=== PATIENT | male | born 1980 | race Hispanic/Latino ===

== ENCOUNTER 2023-07-01 00:01 | Inpatient (IN) | payer OTHER ==
[~2023-07-01] VITALS: Ht 170.2 cm; Wt 77.0 kg
[2023-07-01] MEDS ORDERED: 0.9%NACL 1000ML 1,000 ML IV ONE (01:00)
[2023-07-01 01:15] LABS: BASOPHILS # (AUTO) 0.05 K/uL (0.00-0.20); EOSINOPHILS # (AUTO) 0.11 K/uL (0.00-0.70); EOSINOPHILS % (AUTO) 2.2 % (0.0-8.0); HEMATOCRIT 43.4 % (42-54); IMMATURE GRANULOCYTE ABSOLUTE 0.01 K/uL (0-1); LYMPHOCYTES # (AUTO) 0.9 K/uL (1.0-4.8); LYMPHOCYTES % (AUTO) 18.2 % (21.0-51.0); MEAN CORPUSCULAR HEMOGLOBIN 30.9 pg (27.0-33.0); MEAN CORPUSCULAR HGB CONC 34.6 g/dL (32.0-36.0); MEAN CORPUSCULAR VOLUME 89.5 fL (79-99); MONOCYTES # (AUTO) 0.6 K/uL (0.1-1.0); MONOCYTES % (AUTO) 11.1 % (3.0-13.0); NEUTROPHILS # (AUTO) 3.4 K/uL (1.8-7.7); NEUTROPHILS % (AUTO) 67.3 % (40.0-77.0); PLATELET COUNT (AUTO) 108 K/uL (130-400); RED BLOOD CELL COUNT(AUTO) 4.85 MIL/uL (4.50-6.20); RED CELL DISTRIBUTION WIDTH 13.1 % (11.0-15.5); WHITE BLOOD COUNT (AUTO) 5.1 K/uL (4.8-10.8)
[2023-07-01 01:29] LABS: CREATININE 0.7 mg/dL (0.5-1.5); POTASSIUM 3.4 mmol/L (3.5-5.1)
[2023-07-01 01:42] LABS: APPEARANCE,URINE CLOUDY (CLEAR); BILIRUBIN,URINE NEGATIVE (NEGATIVE); COLOR,URINE DARK-BROWN (YELLOW); GLUCOSE, URINE (UA) NEGATIVE (NEGATIVE); KETONES,URINE NEGATIVE (NEGATIVE); NITRATE,URINE NEGATIVE (NEGATIVE); OCCULT BLOOD,URINE LARGE (NEGATIVE); PROTEIN,URINE 100 mg/dL (NEGATIVE); UROBILINOGEN,URINE 3 mg/dL (0.2-1.0)
[2023-07-01 01:44] LABS: ADD UA MICROSCOPIC YES; LEUKOCYTE ESTERASE ,URINE NEGATIVE Leu/uL (NEGATIVE)
[2023-07-01 01:45] LABS: MUCUS,URINE RARE LPF (None Seen); RBC,URINE TNTC /HPF (0-1)
[2023-07-01] MEDS ORDERED: MORPHINE 2 MG SYG IV PRN (04:30)
[2023-07-01] MEDS ORDERED: MORPHINE 4 MG SYG IV PRN (04:30)
[2023-07-01] MEDS ORDERED: ONDANSETRON 4MG INJ IV PRN (04:30)
[2023-07-01] MEDS ORDERED: POTASSIUM CHLORIDE 20MEQ/100ML 100 ML IV PRN (04:30)
[2023-07-01] MEDS ORDERED: ACETAMINOPHEN 325 MG TAB PO PRN ×2 (04:30)
[2023-07-01] MEDS ORDERED: POTASSIUM CHLORIDE 10% ELIXIR 20 MEQ/15 ML UDCUP PO PRN (04:30)
[2023-07-01 05:15] LABS: INR 1.1 (0.85-1.15); PROTHROMBIN TIME 12.7 SEC (9.6-11.6)
[2023-07-01 05:16] LABS: PARTIAL THROMBOPLASTIN TIME 29.1 SEC (26.3-35.5)
[2023-07-01 05:21] LABS: ALBUMIN 3.6 g/dL (3.5-5.0); BILIRUBIN,TOTAL 1.9 mg/dL (0.2-1.0); MAGNESIUM 1.8 mg/dL (1.80-2.40); PHOSPHORUS 4.2 mg/dL (2.5-4.9); TOTAL PROTEIN, SERUM 7.6 g/dL (6.0-8.3)
[2023-07-01 05:25] VITALS: BP 128/73; PULSE 72; RESP 20
[2023-07-01 08:05] VITALS: BP 124/78; PULSE 77; RESP 16
[2023-07-01] MEDS: FAMOTIDINE 20MG TAB PO SCH ×2 (08:19→22:15)
[2023-07-01] MEDS: KCL 20 MEQ ERTAB PO PRN ×2 (08:19→12:16)
[2023-07-01] MEDS: MAGNESIUM 2GM PREMIX 50ML 50 ML IV PRN (08:20)
[2023-07-01 11:52] VITALS: BP 156/80; PULSE 71; RESP 20
[2023-07-01 16:26] VITALS: BP 146/80; PULSE 76; RESP 16
[2023-07-01] MEDS ORDERED: IOHEXOL-350 75 ML VIAL IV ONE (16:57)
[2023-07-01] MEDS ORDERED: IOHEXOL 350 MG/ML 100ML INFUS..BTL IV ONE (17:02)
[2023-07-01 19:19] VITALS: BP 132/80; PULSE 71; RESP 20
[2023-07-01 23:15] VITALS: BP 129/69; PULSE 81; RESP 18
[2023-07-02] VITALS (7 sets, daily range): BP systolic 109–151; BP diastolic 71–85; PULSE 71–84; RESP 18–19; O2SAT 97–98
[2023-07-02 05:29] LABS: BASOPHILS # (AUTO) 0.04 K/uL (0.00-0.20); BASOPHILS % (AUTO) 1.1 % (0.0-5.0); EOSINOPHILS % (AUTO) 5.4 % (0.0-8.0); HEMATOCRIT 41.8 % (42-54); IMMATURE GRANULOCYTE ABSOLUTE 0.01 K/uL (0-1); LYMPHOCYTES # (AUTO) 0.9 K/uL (1.0-4.8); LYMPHOCYTES % (AUTO) 24.8 % (21.0-51.0); MEAN CORPUSCULAR HEMOGLOBIN 30.3 pg (27.0-33.0); MEAN CORPUSCULAR HGB CONC 33.3 g/dL (32.0-36.0); MEAN CORPUSCULAR VOLUME 91.1 fL (79-99); MONOCYTES # (AUTO) 0.4 K/uL (0.1-1.0); MONOCYTES % (AUTO) 10.9 % (3.0-13.0); NEUTROPHILS # (AUTO) 2.1 K/uL (1.8-7.7); NEUTROPHILS % (AUTO) 57.5 % (40.0-77.0); PLATELET COUNT (AUTO) 105 K/uL (130-400); RED BLOOD CELL COUNT(AUTO) 4.59 MIL/uL (4.50-6.20); RED CELL DISTRIBUTION WIDTH 13.2 % (11.0-15.5); WHITE BLOOD COUNT (AUTO) 3.7 K/uL (4.8-10.8)
[2023-07-02 05:40] LABS: CREATININE 0.6 mg/dL (0.5-1.5); MAGNESIUM 1.7 mg/dL (1.80-2.40); PHOSPHORUS 3.9 mg/dL (2.5-4.9); POTASSIUM 3.7 mmol/L (3.5-5.1)
[2023-07-02] MEDS: FAMOTIDINE 20MG TAB PO SCH ×2 (09:02→21:50)
[2023-07-02] MEDS: MAGNESIUM 2GM PREMIX 50ML 50 ML IV PRN (17:42)
[2023-07-03] VITALS (8 sets, daily range): BP systolic 115–145; BP diastolic 74–88; PULSE 68–80; RESP 18–19; O2SAT 98–99
[2023-07-03] MEDS: FAMOTIDINE 20MG TAB PO SCH ×2 (08:39→21:04)
[2023-07-04] VITALS (7 sets, daily range): BP systolic 121–142; BP diastolic 80–86; PULSE 62–68; RESP 17–18; O2SAT 97–98
[2023-07-04] MEDS: FAMOTIDINE 20MG TAB PO SCH ×2 (08:32→20:22)
[2023-07-05] VITALS (13 sets, daily range): BP systolic 111–161; BP diastolic 70–89; PULSE 65–80; RESP 17–18; O2SAT 93
[2023-07-05 05:30] LABS: BASOPHILS # (AUTO) 0.05 K/uL (0.00-0.20); BASOPHILS % (AUTO) 1.1 % (0.0-5.0); EOSINOPHILS # (AUTO) 0.22 K/uL (0.00-0.70); EOSINOPHILS % (AUTO) 4.9 % (0.0-8.0); HEMATOCRIT 42.9 % (42-54); IMMATURE GRANULOCYTE ABSOLUTE 0.01 K/uL (0-1); LYMPHOCYTES # (AUTO) 1.1 K/uL (1.0-4.8); LYMPHOCYTES % (AUTO) 24.4 % (21.0-51.0); MEAN CORPUSCULAR HEMOGLOBIN 30.5 pg (27.0-33.0); MEAN CORPUSCULAR HGB CONC 33.3 g/dL (32.0-36.0); MEAN CORPUSCULAR VOLUME 91.5 fL (79-99); MONOCYTES # (AUTO) 0.5 K/uL (0.1-1.0); MONOCYTES % (AUTO) 11.6 % (3.0-13.0); NEUTROPHILS # (AUTO) 2.6 K/uL (1.8-7.7); NEUTROPHILS % (AUTO) 57.8 % (40.0-77.0); PLATELET COUNT (AUTO) 116 K/uL (130-400); RED BLOOD CELL COUNT(AUTO) 4.69 MIL/uL (4.50-6.20); RED CELL DISTRIBUTION WIDTH 13.1 % (11.0-15.5); WHITE BLOOD COUNT (AUTO) 4.5 K/uL (4.8-10.8)
[2023-07-05 05:38] LABS: INR 1.07 (0.85-1.15); PROTHROMBIN TIME 12.4 SEC (9.6-11.6)
[2023-07-05 05:40] LABS: PARTIAL THROMBOPLASTIN TIME 29.7 SEC (26.3-35.5)
[2023-07-05 05:48] LABS: CREATININE 0.6 mg/dL (0.5-1.5); MAGNESIUM 1.7 mg/dL (1.80-2.40); PHOSPHORUS 4.5 mg/dL (2.5-4.9); POTASSIUM 3.7 mmol/L (3.5-5.1)
[2023-07-05] MEDS: MAGNESIUM 2GM PREMIX 50ML 50 ML IV PRN (06:05)
[2023-07-05] MEDS: FAMOTIDINE 20MG TAB PO SCH (09:00)
[2023-07-05] MEDS ORDERED: MIDAZOLAM HCL 1 MG/ML 2ML VIAL ONE (12:49)
[2023-07-05] MEDS ORDERED: FENTANYL CITRATE PF 50 MCG/1 ML 2ML VIAL ONE (12:49)
== END 2023-07-05 19:15 | disposition home or self-care (01) | DRG 688 ==
LOC: EDH 00:01 → EDHIP 00:02 → 3AH 05:25
PROVIDERS: ADMIT Internal Medicine; ATTEND Internal Medicine
PROC: 0TB03ZX Excision of Right Kidney, Percutaneous Approach, Diagnostic (ICD-10-PCS; principal; 2023-07-05)
DX: C64.9 Malignant neoplasm of unspecified kidney, except renal pelvis (principal); E87.6 Hypokalemia; R91.1 Solitary pulmonary nodule; K74.60 Unspecified cirrhosis of liver; Z90.49 Acquired absence of other specified parts of digestive tract; Z87.891 Personal history of nicotine dependence
CPT/HCPCS: 36415; 50200; 71270; 74176; 74178; 76770; 76942; 78306; 80048; 80053; 81001; 82306; 83735; 84100; 84153; 84207; 85025; 85610; 85730; 93975; 99151; 99153; A9503; G0378; J2250; J3010; J3475; Q9967; C2615

== ENCOUNTER 2023-08-23 00:19 | Emergency (ER) | payer MEDICAID, OTHER ==
[~2023-08-23] VITALS: Ht 170.2 cm; Wt 78.0 kg
[2023-08-23 00:45] LABS: BASOPHILS # (AUTO) 0.03 K/uL (0.00-0.20); BASOPHILS % (AUTO) 0.6 % (0.0-5.0); EOSINOPHILS # (AUTO) 0.16 K/uL (0.00-0.70); EOSINOPHILS % (AUTO) 3.5 % (0.0-8.0); HEMATOCRIT 41.2 % (42-54); LYMPHOCYTES # (AUTO) 0.9 K/uL (1.0-4.8); LYMPHOCYTES % (AUTO) 19.9 % (21.0-51.0); MEAN CORPUSCULAR HEMOGLOBIN 30.5 pg (27.0-33.0); MEAN CORPUSCULAR HGB CONC 34.7 g/dL (32.0-36.0); MEAN CORPUSCULAR VOLUME 87.8 fL (79-99); MONOCYTES # (AUTO) 0.6 K/uL (0.1-1.0); NEUTROPHILS # (AUTO) 2.9 K/uL (1.8-7.7); PLATELET COUNT (AUTO) 114 K/uL (130-400); RED BLOOD CELL COUNT(AUTO) 4.69 MIL/uL (4.50-6.20); RED CELL DISTRIBUTION WIDTH 13.4 % (11.0-15.5); WHITE BLOOD COUNT (AUTO) 4.6 K/uL (4.8-10.8)
[2023-08-23 00:54] LABS: CREATININE 0.8 mg/dL (0.5-1.5); POTASSIUM 3.6 mmol/L (3.5-5.1)
[2023-08-23 00:59] LABS: ALBUMIN 3.5 g/dL (3.5-5.0); BILIRUBIN,TOTAL 1.1 mg/dL (0.2-1.0); TOTAL PROTEIN, SERUM 7.7 g/dL (6.0-8.3)
[2023-08-23] MEDS ORDERED: MORPHINE 2 MG SYG ONE (01:26)
[2023-08-23 01:39] LABS: APPEARANCE,URINE TURBID (CLEAR); BILIRUBIN,URINE NEGATIVE (NEGATIVE); COLOR,URINE RED (YELLOW); GLUCOSE, URINE (UA) NEGATIVE (NEGATIVE); KETONES,URINE NEGATIVE (NEGATIVE); LEUKOCYTE ESTERASE ,URINE 25 Leu/uL (NEGATIVE); NITRATE,URINE NEGATIVE (NEGATIVE); OCCULT BLOOD,URINE LARGE (NEGATIVE); PH,URINE 7.5 (5.0-8.0); PROTEIN,URINE 300 mg/dL (NEGATIVE); UROBILINOGEN,URINE 0.2 mg/dL (0.2-1.0)
[2023-08-23 01:40] LABS: ADD UA MICROSCOPIC YES
[2023-08-23 01:43] LABS: RBC,URINE TNTC /HPF (0-1)
[2023-08-23] MEDS ORDERED: MORPHINE 2 MG SYG IVP ONE (02:00)
[2023-08-23 02:29] VITALS: BP 146/83; PULSE 87; RESP 16; O2SAT 99
[2023-09-14] MEDS ORDERED: CEPH500C2 PO (12:00)
[2023-09-15] MEDS ORDERED: ACET-2079 PO (14:58)
== END 2023-08-23 02:41 | disposition home or self-care (01) ==
LOC: EDH 00:19
DX: N28.89 Other specified disorders of kidney and ureter (principal); R33.9 Retention of urine, unspecified; R31.9 Hematuria, unspecified; Z90.49 Acquired absence of other specified parts of digestive tract; Z90.89 Acquired absence of other organs
CPT/HCPCS: 99285; 74176; 96374; 80053; 85025; 81001; 36415; 51702; J2270

== ENCOUNTER 2023-12-30 03:41 | Inpatient (IN) | payer MEDICAID ==
[~2023-12-30] VITALS: Ht 167.6 cm; Wt 71.1 kg
[2023-12-30] VITALS (68 sets, daily range): BP systolic 90–135; BP diastolic 43–80; PULSE 85–111; RESP 14–100; O2SAT 98–99
[~2023-12-30 03:41] MED LIST: AXIT1TAB PO; DIPH-543 PO; ONDA8TAB12 PO; SIME125C81 PO
[2023-12-30] MEDS: LEVETIRACETAM 500 MG/5 ML SD VIAL IV SCH (04:05)
[2023-12-30] MEDS: LORAZEPAM 2 MG/ML 1 ML VIAL IVP ONE (04:05)
[2023-12-30 04:11] LABS: BASOPHILS # (AUTO) 0.05 K/uL (0.00-0.20); EOSINOPHILS # (AUTO) 0.03 K/uL (0.00-0.70); EOSINOPHILS % (AUTO) 0.6 % (0.0-8.0); HEMATOCRIT 43.9 % (42-54); IMMATURE GRANULOCYTE ABSOLUTE 0.03 K/uL (0-1); MEAN CORPUSCULAR HEMOGLOBIN 29.4 pg (27.0-33.0); MEAN CORPUSCULAR HGB CONC 35.3 g/dL (32.0-36.0); MEAN CORPUSCULAR VOLUME 83.3 fL (79-99); MONOCYTES # (AUTO) 0.4 K/uL (0.1-1.0); NEUTROPHILS # (AUTO) 3.4 K/uL (1.8-7.7); NEUTROPHILS % (AUTO) 69.8 % (40.0-77.0); PLATELET COUNT (AUTO) 134 K/uL (130-400); RED BLOOD CELL COUNT(AUTO) 5.27 MIL/uL (4.50-6.20); RED CELL DISTRIBUTION WIDTH 15.3 % (11.0-15.5); WHITE BLOOD COUNT (AUTO) 4.9 K/uL (4.8-10.8)
[2023-12-30 04:19] LABS: ABG BASE EXCESS -19.8 mmol/L (-2.0-3.0); ABG HCO3 6.8 mmol/L (21.0-28.0); ABG OXYGEN SATURATION 98.2 % (95.0-99.0); ABG PCO2 20 mmHg (35-48); ABG PH 7.157 (7.35-7.450); CARBON MONOXIDE 0.8; HHb 1.8; PO2, ARTERIAL BG 130.7 mmHg (83.0-108.0); VENT MODE, BG ROOM AIR (ROOM AIR)
[2023-12-30] MEDS: 0.9%NACL 1000ML 1,000 ML IV ONE (04:30)
[2023-12-30 04:34] LABS: ALCOHOL, BLOOD < 3 mg/dL (0-10); CHLORIDE 93 mmol/L (101-111); CREATINE KINASE, TOTAL 91 U/L (21-232); CREATININE 1.4 mg/dL (0.5-1.5); GLOMERULAR FILTR. RATE CALC 63 mL/min (>90); POTASSIUM 3.1 mmol/L (3.5-5.1); SODIUM SERUM 128 mmol/L (136-145); THYROID STIMULATING HORMONE 1.71 uIU/mL (0.36-3.74); UREA NITROGEN, BLOOD 12 mg/dL (7-18)
[2023-12-30] MEDS: INSULIN HUMULIN R 100 UNIT/ML 3ML IV ONE (04:34)
[2023-12-30 04:37] LABS: CARBON DIOXIDE 8 mmol/L (21-32); GLUCOSE,RANDOM 530 mg/dL (70-105)
[2023-12-30] MEDS: MORPHINE 4 MG SYG ONE (05:00)
[2023-12-30] MEDS: MORPHINE 4 MG SYG IVP ONE (05:02)
[2023-12-30] MEDS: 0.9%NACL 1000ML 1,000 ML IV SCH ×2 (05:19→07:04)
[2023-12-30] MEDS: INSULIN REGULAR, HUMAN 3ML 100 UNIT in 0.9%NACL 100ML 100 ML IV SCH ×2 (05:21→21:03)
[2023-12-30] MEDS: POTASSIUM CHLORIDE 20MEQ/100ML 100 ML IV PRN (05:23)
[2023-12-30] MEDS ORDERED: ONDANSETRON 4MG INJ IV PRN (05:30)
[2023-12-30] MEDS ORDERED: MANNITOL 20% 250ML IV.SOLN IV SCH ×2 (05:30)
[2023-12-30] MEDS ORDERED: POTASSIUM CHLORIDE 10MEQ/100ML 100 ML IV PRN (05:30)
[2023-12-30] MEDS ORDERED: D5W-1/2 NS/20MEQ KCL 1,000 ML IV SCH (05:30)
[2023-12-30] MEDS ORDERED: MAGNESIUM 2GM PREMIX 50ML 50 ML IV SCH (05:30)
[2023-12-30] MEDS ORDERED: MAGNESIUM 2GM PREMIX 50ML 50 ML IV PRN (05:30)
[2023-12-30] MEDS ORDERED: INSULIN REGULAR, HUMAN 3ML 100 UNIT in 0.9%NACL 100ML 99 ML IV PRN (05:30)
[2023-12-30 05:52] LABS: AMPHET/METH SCREEN,URINE NEGATIVE (NEGATIVE); BARBITURATE SCREEN, URINE NEGATIVE (NEGATIVE); BENZODIAZEPINES SCREEN,URINE NEGATIVE (NEGATIVE); CANNABINOID SCREEN,URINE NEGATIVE (NEGATIVE); COCAINE SCREEN,URINE NEGATIVE (NEGATIVE); OPIATE SCREEN,URINE NEGATIVE (NEGATIVE); PHENCYCLIDINE SCREEN,URINE NEGATIVE (NEGATIVE)
[2023-12-30 05:56] LABS: APPEARANCE,URINE CLEAR (CLEAR); BILIRUBIN,URINE NEGATIVE (NEGATIVE); COLOR,URINE LIGHT-YELLOW (YELLOW); GLUCOSE, URINE (UA) >=1000 mg/dL (NEGATIVE); KETONES,URINE 100 mg/dL (NEGATIVE); LEUKOCYTE ESTERASE ,URINE NEGATIVE Leu/uL (NEGATIVE); NITRATE,URINE NEGATIVE (NEGATIVE); OCCULT BLOOD,URINE SMALL (NEGATIVE); PH,URINE 5.5 (5.0-8.0); PROTEIN,URINE 50 mg/dL (NEGATIVE); UROBILINOGEN,URINE 0.2 mg/dL (0.2-1.0)
[2023-12-30 05:57] LABS: ADD UA MICROSCOPIC YES
[2023-12-30 05:59] LABS: BACTERIA,URINE RARE /HPF (None Seen); MUCUS,URINE RARE LPF (None Seen); RBC,URINE 0-1 /HPF (0-1); SQUAMOUS EPITHELIAL CELL,UR RARE /HPF (0-2)
[2023-12-30] MEDS ORDERED: COMPOUND IV MISC 1 EACH IVSOLN MISC PRN (08:00)
[2023-12-30] MEDS: LACTULOSE 20 GM/30 ML UDCUP ONE (08:09)
[2023-12-30] MEDS: LACTULOSE 20 GM/30 ML UDCUP PO ONE (08:12)
[2023-12-30] MEDS: POTASSIUM CHLORIDE 10MEQ/100ML 100 ML IV PRN (08:12)
[2023-12-30] MEDS: D5W-1/2 NS/20MEQ KCL 1,000 ML IV SCH (08:13)
[2023-12-30] MEDS ORDERED: LORAZEPAM 2 MG/ML 1 ML VIAL IM PRN (08:30)
[2023-12-30] MEDS: PANTOPRAZOLE 40 MG/VIAL IVP SCH (08:45)
[2023-12-30 08:47] LABS: ABG OXYGEN SATURATION 46.5 % (95.0-99.0); BASE EXCESS,VENOUS BLOOD GAS -14.9 (-2.0-3.0); DEVICE COMMENT ISAAC RN RARM; HCO3,VENOUS BLOOD GAS 10.7 (21.0-28.0); PCO2,VENOUS BLOOD GAS 26 (32-45); PH,VENOUS BLOOD GAS 7.236 (7.350-7.450); PO2,VENOUS BLOOD GAS 29.2 mmHg (35.0-45.0); VENT MODE, BG RA (ROOM AIR)
[2023-12-30] MEDS ORDERED: LEVETIRACETAM 500 MG/5 ML SD VIAL IV SCH (09:00)
[2023-12-30] MEDS ORDERED: FAMOTIDINE 20MG VIAL IV SCH (09:00)
[2023-12-30] MEDS ORDERED: LEVETIRACETAM 750 MG in 0.9%NACL 100ML 100 ML IV SCH (09:00)
[2023-12-30] MEDS: CEFEPIME HCL 2 GM VIAL IVPB SCH (10:06)
[2023-12-30 11:02] LABS: HEMOGLOBIN A1C 10.4 % (4.0-6.0)
[2023-12-30 11:54] LABS: ALBUMIN 2.8 g/dL (3.5-5.0); BILIRUBIN,TOTAL 1.2 mg/dL (0.2-1.0); TOTAL PROTEIN, SERUM 6.4 g/dL (6.0-8.3)
[2023-12-30] MEDS: LACTULOSE 20 GM/30 ML UDCUP PO SCH (12:06)
[2023-12-30] MEDS ORDERED: ZOSYN 3.375GM+NS 50ML 50 ML IV SCH (13:00)
[2023-12-30 14:14] LABS: POTASSIUM 1.9 mmol/L (3.5-5.1)
[2023-12-30 14:44] LABS: INR 1.02 (0.85-1.15); PROTHROMBIN TIME 11.8 SEC (9.6-11.6)
[2023-12-30] MEDS: POTASSIUM CHLORIDE 10% ELIXIR 20 MEQ/15 ML UDCUP PO PRN (14:59)
[2023-12-30] MEDS: POTASSIUM CHLORIDE 10% ELIXIR 20 MEQ/15 ML UDCUP ONE (15:03)
[2023-12-30] MEDS: MAGNESIUM 2GM PREMIX 50ML 50 ML IV SCH (15:42)
[2023-12-30] MEDS ORDERED: [UNRECOGNIZED DRUG - OTHER] IV SCH (16:00)
[2023-12-30] MEDS ORDERED: LEVETIRACETAM IV SCH (16:00)
[2023-12-30] MEDS: LEVETIRACETAM 750 MG in 0.9%NACL 100ML 100 ML IV SCH (16:07)
[2023-12-30] MEDS ORDERED: METF-444 PO (17:39)
[2023-12-30] MEDS ORDERED: RAMI5CAP66 PO (17:39)
[2023-12-30] MEDS ORDERED: AXIT5TAB PO (17:39)
[2023-12-30 18:21] LABS: CREATININE 0.9 mg/dL (0.5-1.5); MAGNESIUM 2.3 mg/dL (1.80-2.40)
[2023-12-30 18:24] LABS: POTASSIUM 2.9 mmol/L (3.5-5.1)
[2023-12-30 20:49] LABS: COVID19 (SARS ANTIGEN RAPID) PRESUMPTIVE NEGATIVE (NEGATIVE); INFLUENZA TYPE A Negative For Type A (NEGATIVE); INFLUENZA TYPE B Negative For Type B (NEGATIVE)
[2023-12-30] MEDS: INSULIN GLARGINE 100 UNITS/ML 10 ML VIAL SQ SCH (20:51)
[2023-12-30 22:19] LABS: CREATININE 0.8 mg/dL (0.5-1.5)
[2023-12-30 22:26] LABS: POTASSIUM 2.8 mmol/L (3.5-5.1)
[2023-12-30] MEDS ORDERED: GLUCAGON 1MG KIT 1 MG ML IM PRN (23:30)
[2023-12-30] MEDS ORDERED: DEXTROSE 50%-WATER 50 ML DISP.SYRIN IV PRN (23:30)
[2023-12-31] VITALS (18 sets, daily range): BP systolic 102–133; BP diastolic 40–78; PULSE 84–102; RESP 13–22; O2SAT 97–98
[2023-12-31 04:04] LABS: BASOPHILS # (AUTO) 0.02 K/uL (0.00-0.20); BASOPHILS % (AUTO) 0.6 % (0.0-5.0); EOSINOPHILS # (AUTO) 0.06 K/uL (0.00-0.70); EOSINOPHILS % (AUTO) 1.8 % (0.0-8.0); HEMATOCRIT 35.1 % (42-54); IMMATURE GRANULOCYTE ABSOLUTE 0.01 K/uL (0-1); LYMPHOCYTES # (AUTO) 0.6 K/uL (1.0-4.8); LYMPHOCYTES % (AUTO) 18.5 % (21.0-51.0); MEAN CORPUSCULAR HEMOGLOBIN 29.2 pg (27.0-33.0); MEAN CORPUSCULAR HGB CONC 36.8 g/dL (32.0-36.0); MEAN CORPUSCULAR VOLUME 79.4 fL (79-99); MONOCYTES # (AUTO) 0.4 K/uL (0.1-1.0); MONOCYTES % (AUTO) 10.7 % (3.0-13.0); NEUTROPHILS # (AUTO) 2.3 K/uL (1.8-7.7); NEUTROPHILS % (AUTO) 68.1 % (40.0-77.0); PLATELET COUNT (AUTO) 73 K/uL (130-400); RED BLOOD CELL COUNT(AUTO) 4.42 MIL/uL (4.50-6.20); RED CELL DISTRIBUTION WIDTH 15.1 % (11.0-15.5); WHITE BLOOD COUNT (AUTO) 3.4 K/uL (4.8-10.8)
[2023-12-31 04:28] LABS: CREATININE 0.7 mg/dL (0.5-1.5); MAGNESIUM 1.7 mg/dL (1.80-2.40); POTASSIUM 3.4 mmol/L (3.5-5.1); THYROID STIMULATING HORMONE 1.89 uIU/mL (0.36-3.74)
[2023-12-31] MEDS: KCL 20 MEQ ERTAB PO PRN (06:16)
[2023-12-31] MEDS: 0.9%NACL 1000ML 1,000 ML IV SCH (08:46)
[2023-12-31] MEDS ORDERED: POTASSIUM CHLORIDE 20MEQ/100ML 100 ML IV ONE (10:30)
[2023-12-31] MEDS ORDERED: MAGNESIUM 2GM PREMIX 50ML 50 ML IV SCH (10:30)
[2023-12-31 12:30] LABS: CREATININE 0.7 mg/dL (0.5-1.5)
[2023-12-31] MEDS: SODIUM BICARBONATE 650 MG TAB PO SCH (14:50)
[2023-12-31] MEDS: INSULIN GLARGINE 100 UNITS/ML 10 ML VIAL SQ ONE (14:52)
[2023-12-31] MEDS: INSULIN HUMULIN R 100 UNIT/ML 3ML SQ SCH ×2 (16:41)
[2023-12-31] MEDS: INSULIN GLARGINE 100 UNITS/ML 10 ML VIAL SQ SCH (22:02)
[2024-01-01] VITALS (7 sets, daily range): BP systolic 113–128; BP diastolic 69–78; PULSE 86–98; RESP 17–20; O2SAT 99
[2024-01-01 05:50] LABS: HEMATOCRIT 34.1 % (42-54); MEAN CORPUSCULAR HEMOGLOBIN 29.6 pg (27.0-33.0); MEAN CORPUSCULAR HGB CONC 36.7 g/dL (32.0-36.0); MEAN CORPUSCULAR VOLUME 80.6 fL (79-99); PLATELET COUNT (AUTO) 63 K/uL (130-400); RED BLOOD CELL COUNT(AUTO) 4.23 MIL/uL (4.50-6.20); RED CELL DISTRIBUTION WIDTH 15.2 % (11.0-15.5); WHITE BLOOD COUNT (AUTO) 2.6 K/uL (4.8-10.8)
[2024-01-01 06:32] LABS: ALBUMIN 2.5 g/dL (3.5-5.0); CREATININE 0.7 mg/dL (0.5-1.5)
[2024-01-01 06:37] LABS: BILIRUBIN,TOTAL 1.8 mg/dL (0.2-1.0); MAGNESIUM 1.9 mg/dL (1.80-2.40); TOTAL PROTEIN, SERUM 5.9 g/dL (6.0-8.3)
[2024-01-01 06:49] LABS: POTASSIUM 2.9 mmol/L (3.5-5.1)
[2024-01-01 08:25] LABS: BAND NEUTROPHILS % (MANUAL) 7 % (0-2); EOSINOPHILS % (MANUAL) 1 % (1-6); LYMPHOCYTES % (MANUAL) 19 % (22-44); MONOCYTES % (MANUAL) 9 % (2-9); REACTIVE LYMPHOCYTES 3 % (0-0); SEGMENTED NEUTROPHILS % 61 % (40-70); TOTAL CELLS COUNTED 100
[2024-01-01 08:28] LABS: MAN.DIFF COMMENT-IMPRESSION MANUAL DIFFERENTIAL; PLATELET MORPHOLOGY COMMENT DECREASED
[2024-01-01] MEDS: LISINOPRIL 10 MG TABLET PO SCH (08:59)
[2024-01-01] MEDS ORDERED: NON-FORMULARY MEDICATION 1 EACH (Ramipril 5 MG) PO SCH (09:00)
[2024-01-01] MEDS: LACTULOSE 20 GM/30 ML UDCUP PO SCH (15:01)
[2024-01-01] MEDS: LEVETIRACETAM 250 MG TABLET PO SCH (20:02)
[2024-01-02] VITALS (8 sets, daily range): BP systolic 110–170; BP diastolic 72–111; PULSE 74–93; RESP 16–20; O2SAT 97–99
[2024-01-02 05:21] LABS: BASOPHILS # (AUTO) 0.01 K/uL (0.00-0.20); BASOPHILS % (AUTO) 0.5 % (0.0-5.0); EOSINOPHILS # (AUTO) 0.04 K/uL (0.00-0.70); EOSINOPHILS % (AUTO) 1.8 % (0.0-8.0); HEMATOCRIT 33.3 % (42-54); IMMATURE GRANULOCYTE ABSOLUTE 0.01 K/uL (0-1); LYMPHOCYTES # (AUTO) 0.6 K/uL (1.0-4.8); LYMPHOCYTES % (AUTO) 25.2 % (21.0-51.0); MEAN CORPUSCULAR HEMOGLOBIN 29.3 pg (27.0-33.0); MEAN CORPUSCULAR VOLUME 81.4 fL (79-99); MONOCYTES # (AUTO) 0.4 K/uL (0.1-1.0); MONOCYTES % (AUTO) 17.6 % (3.0-13.0); NEUTROPHILS # (AUTO) 1.2 K/uL (1.8-7.7); NEUTROPHILS % (AUTO) 54.4 % (40.0-77.0); PLATELET COUNT (AUTO) 52 K/uL (130-400); RED BLOOD CELL COUNT(AUTO) 4.09 MIL/uL (4.50-6.20); RED CELL DISTRIBUTION WIDTH 15.5 % (11.0-15.5); WHITE BLOOD COUNT (AUTO) 2.2 K/uL (4.8-10.8)
[2024-01-02 05:53] LABS: ALBUMIN 2.6 g/dL (3.5-5.0); BILIRUBIN,TOTAL 1.7 mg/dL (0.2-1.0); CREATININE 0.6 mg/dL (0.5-1.5); MAGNESIUM 1.8 mg/dL (1.80-2.40); POTASSIUM 3.5 mmol/L (3.5-5.1)
[2024-01-02] MEDS: INSULIN HUMULIN R 100 UNIT/ML 3ML SQ SCH ×2 (06:11→11:47)
[2024-01-02] MEDS ORDERED: INSULIN HUMULIN R 100 UNIT/ML 3ML SQ SCH (11:30)
[2024-01-03] VITALS (8 sets, daily range): BP systolic 113–133; BP diastolic 70–81; PULSE 89–96; RESP 16–19; O2SAT 98–99
[2024-01-03] MEDS: INSULIN HUMULIN R 100 UNIT/ML 3ML SQ SCH (13:26)
[2024-01-03 14:57] LABS: CREATININE 0.8 mg/dL (0.5-1.5); MAGNESIUM 1.9 mg/dL (1.80-2.40); POTASSIUM 3.2 mmol/L (3.5-5.1)
[2024-01-03] MEDS: INSULIN GLARGINE 100 UNITS/ML 10 ML VIAL SQ SCH (21:04)
[2024-01-03] MEDS: HYDROXYZINE 25 MG TABLET PO ONE (21:57)
[2024-01-04 04:00] VITALS: BP 131/77; PULSE 91; RESP 19
[2024-01-04 06:07] LABS: POTASSIUM 3.5 mmol/L (3.5-5.1)
[2024-01-04] MEDS ORDERED: LACT10SO9 PO (06:31)
[2024-01-04] MEDS ORDERED: LISI10TA24 PO (06:31)
[2024-01-04] MEDS ORDERED: LEVE750T4 PO (06:31)
[2024-01-04 07:49] VITALS: BP 130/78; PULSE 96; RESP 18
[2024-01-04 08:55] VITALS: O2SAT 98
== END 2024-01-04 10:21 | disposition home or self-care (01) | DRG 720 ==
LOC: EDH 03:41 → EDHIP 03:42 → 2CV 08:07 → 2BH 17:56 → 3BH 12-31 20:19
PROVIDERS: ADMIT Internal Medicine; ATTEND Internal Medicine
DX: A41.9 Sepsis, unspecified organism (principal); J96.01 Acute respiratory failure with hypoxia; J69.0 Pneumonitis due to inhalation of food and vomit; G93.41 Metabolic encephalopathy; E11.10 Type 2 diabetes mellitus with ketoacidosis without coma; N30.00 Acute cystitis without hematuria; R65.20 Severe sepsis without septic shock; G40.909 Epilepsy, unspecified, not intractable, without status epilepticus; E87.6 Hypokalemia; K74.60 Unspecified cirrhosis of liver; C64.9 Malignant neoplasm of unspecified kidney, except renal pelvis; E87.5 Hyperkalemia; F17.210 Nicotine dependence, cigarettes, uncomplicated; Z79.4 Long term (current) use of insulin; Z79.899 Other long term (current) drug therapy; Z82.49 Family history of ischemic heart disease and other diseases of the circulatory system; Z83.3 Family history of diabetes mellitus; Z85.528 Personal history of other malignant neoplasm of kidney
CPT/HCPCS: 36415; 36600; 70450; 70551; 71045; 80048; 80053; 80061; 80305; 81001; 82010; 82140; 82435; 82550; 82803; 82947; 82948; 83036; 83605; 83735; 84132; 84145; 84295; 84443; 85018; 85025; 85027; 85610; 87040; 87088; 87426; 87804; 93005; 96365; 96372; 96375; C9113; G0378; J0692; J1815; J1953; J2060; J2270; J2405; J3475; J3480; J3490; J7030

== ENCOUNTER 2024-10-22 18:42 | Emergency (ER) | payer MEDICAID ==
[~2024-10-22] VITALS: Ht 170.2 cm; Wt 63.0 kg
[~2024-10-22 18:42] MED LIST changes: -AXIT1TAB PO; +AXIT5TAB PO; -DIPH-543 PO; +LACT10SO9 PO; +LEVE750T4 PO; +LISI10TA24 PO; +METF-444 PO; -ONDA8TAB12 PO; +RAMI5CAP72 PO; -SIME125C81 PO
[2024-10-22 19:40] LABS: BASOPHILS # (AUTO) 0.02 K/uL (0.00-0.20); BASOPHILS % (AUTO) 0.4 % (0.0-5.0); EOSINOPHILS # (AUTO) 0.01 K/uL (0.00-0.70); EOSINOPHILS % (AUTO) 0.2 % (0.0-8.0); HEMATOCRIT 35.9 % (42-54); IMMATURE GRANULOCYTE ABSOLUTE 0.01 K/uL (0-1); LYMPHOCYTES # (AUTO) 0.4 K/uL (1.0-4.8); LYMPHOCYTES % (AUTO) 9.6 % (21.0-51.0); MEAN CORPUSCULAR HEMOGLOBIN 28.2 pg (27.0-33.0); MEAN CORPUSCULAR VOLUME 83.1 fL (79-99); MONOCYTES # (AUTO) 0.2 K/uL (0.1-1.0); MONOCYTES % (AUTO) 5.2 % (3.0-13.0); NEUTROPHILS # (AUTO) 3.9 K/uL (1.8-7.7); NEUTROPHILS % (AUTO) 84.4 % (40.0-77.0); PLATELET COUNT (AUTO) 123 K/uL (130-400); RED BLOOD CELL COUNT(AUTO) 4.32 MIL/uL (4.50-6.20); RED CELL DISTRIBUTION WIDTH 12.9 % (11.0-15.5); WHITE BLOOD COUNT (AUTO) 4.6 K/uL (4.8-10.8)
[2024-10-22] MEDS: morPHINE 4 MG SYG IVP ONE (19:49)
[2024-10-22] MEDS: ondanSETRON 4MG INJ IVP ONE (19:49)
[2024-10-22] MEDS: PANTOPrazole 40 MG/VIAL IVP ONE (19:49)
[2024-10-22] MEDS: 0.9%NACL 1000ML 1,000 ML IV ONE (19:50)
--- NOTE | 2024-10-22 20:00 | HMCIMG ---
Exam Type: CHEST 1VW Clinical Information: sob Comparison: None Findings: The lungs are clear of infiltrates. The heart is normal in size. The bony and soft tissue structures of the chest are unremarkable. Impression: Clear lungs.
[2024-10-22 20:03] LABS: ALBUMIN 2.7 g/dL (3.5-5.0); BILIRUBIN,DIRECT 0.3 mg/dL (0.0-0.3); CREATININE 0.9 mg/dL (0.5-1.3); TOTAL PROTEIN, SERUM 7.2 g/dL (6.0-8.3)
[2024-10-22] MEDS ORDERED: IOHEXOL-350 75 ML VIAL IV ONE (20:47)
[2024-10-22 20:52] LABS: INR 1.08 (0.85-1.15)
[2024-10-22 20:53] LABS: PARTIAL THROMBOPLASTIN TIME 28.3 SEC (26.3-35.5)
--- NOTE | 2024-10-22 21:22 | HMCIMG ---
Exam Type: CT ABDOMEN AND PELVIS WITH ORAL AND IV CONTRAST Clinical Information: generalized Abdominal Pain, s/p colonoscopy Contrast: 100 cc's Isovue 370 IV, no complications or adverse reactions Technique: Routine helical scanning at 5mm collimation through the abdomen and pelvis was performed after oral contrast administration. The examination was done before and after IV contrast administration as well. Intermediate and 7 minute delayed post IV contrast administration images were performed, for adequate contrast distention of the urinary collecting systems, ureters and the urinary bladder. CT Dose Index (CTDI): 4.38 mGy Dose Length Product (DLP): 197.9 total mGy-cm Findings: No evidence of nephro or ureterolithiasis is found. No hydronephrosis or ureteral dilatation is seen. Right renal lower interpolar complex mass with solid and cystic components 7.4 cm highly suspicious for neoplasm. The lung bases are clear. The stomach is unremarkable. It shows no wall thickening. No gross ulceration is seen. It is not overly distended. There are no surrounding inflammatory changes. No wall lesions are identified to suggest cancer. The spleen is enlarged. The liver is irregular in contour consistent with given history of cirrhosis. There are splenic hilar varices and varices of the gastroesophageal junction. There is trace ascites. These findings are consistent with portal venous hypertension. The pancreas shows normal anatomy. It is not fatty replaced. It shows no lesions. The pancreatic duct is not dilated. There is evidence of cholelithiasis. No evidence of acute or chronic inflammation is seen. The adrenal glands are unremarkable. There is no enlargement. No lesions are noted. The appendix is unremarkable. It shows no evidence of inflammation. No appendicolith is seen. The small bowel is unremarkable. There is no evidence of dilatation to suggest obstruction. No evidence of adynamic ileus is seen. There is no small bowel wall thickening to suggest enteritis. The colon is unremarkable. The urinary bladder is unremarkable. There is no wall thickening to suggest tumor or inflammation. There are no intraluminal calculi. There are no diverticula. There is no evidence of chronic bladder outlet obstruction. There is no evidence of urinary bladder distention to suggest urinary retention. The other pelvic structures are unremarkable. The bony and vascular structures are unremarkable for the patient's age. IMPRESSION: Findings consistent with cirrhosis and portal venous hypertension. Right renal mass suspicious for neoplasm. This study was performed using dose reduction techniques to include automated exposure control and/or adjustment of the mA and/or kV according to patient size to include automated exposure control and/or adjustment of the mA and/or kV according to patient size.
[2024-10-22 22:47] LABS: APPEARANCE,URINE CLEAR (CLEAR); BILIRUBIN,URINE NEGATIVE (NEGATIVE); COLOR,URINE LIGHT-YELLOW (YELLOW); GLUCOSE, URINE (UA) TRACE mg/dL (NEGATIVE); KETONES,URINE NEGATIVE (NEGATIVE); LEUKOCYTE ESTERASE ,URINE NEGATIVE Leu/uL (NEGATIVE); NITRATE,URINE NEGATIVE (NEGATIVE); OCCULT BLOOD,URINE NEGATIVE (NEGATIVE); PROTEIN,URINE NEGATIVE (NEGATIVE); UROBILINOGEN,URINE 0.2 mg/dL (0.2-1.0)
[2024-10-22] MEDS: morPHINE 2 MG SYG IVP ONE (22:48)
[2024-10-22 22:49] LABS: ADD UA MICROSCOPIC YES
[2024-10-22 22:50] LABS: BACTERIA,URINE None Seen /HPF (None Seen); MUCUS,URINE Rare LPF (None Seen); RBC,URINE 0-1 /HPF (0-1); WBC,URINE 0-1 /HPF (0-1)
--- NOTE | 2024-10-22 23:44 | ERN ---
ED Note History of Present Illness Stated Complaint: ABDOMINAL PAIN Chief Complaint: Abdominal Pain Time Seen by MD: 18:48 Time Seen by Midlevel: 18:48 Dictation: The patient is a 44-year-old male with history of diabetes, hypertension, kidney cancer who presents to the emergency department with complaints of epigastric pain, nausea nonbloody vomiting onset this morning. Patient denies any diarrhea, constipation, fevers. Reports he had a colonoscopy done at [facility] yesterday. Allergies: Coded Allergies: No Known Drug Allergies (Unverified Allergy, Unknown, 07/01/23) Home Meds Active Scripts Lactulose (Lactulose) 20 Gram/30 Ml Solution, 20 GM PO TID for 30 Days, #500 ML Prov:NOAH WAGNER FRONT END MECHANIC 01/04/24 Lisinopril (Lisinopril) 10 Mg Tablet, 10 MG PO DAILY for 30 Days, #30 TAB Prov:NOAH WAGNER FRONT END MECHANIC 01/04/24 Levetiracetam (Keppra) 750 Mg Tablet, 750 MG PO BID for 30 Days, #60 TAB Prov:NOAH WAGNER FRONT END MECHANIC 01/04/24 Reported Medications Metformin HCl (Metformin HCl) 500 Mg Tablet, 500 MG PO AD, TAB 12/30/23 Ramipril (Ramipril) 5 Mg Capsule, 5 MG PO DAILY, CAP 12/30/23 Axitinib (Inlyta) 5 Mg Tablet, 5 MG PO BID, TAB 12/30/23 Past Medical History Past Medical History: Cancer, Diabetes-Type II Additional Past Medical Hx: KIDNEY CANCER Surgical History: Other Surgical History Other: COLONOSCOPY Family History: Negative Social History: Negative, Lives with family RN Note Reviewed/Agreed w/PFSH: Yes Review of System Dictation Constitutional: Negative for fever,chills, and weight loss Eyes: Negative for injury, pain,redness, and discharge ENT: Negative for injury,pain or swelling Cardiovascular: Negative for chest pain, palpitations, and edema Respiratory: Negative for shortness of breath, cough, and wheezing, Abdomen/GI: Negative for diarrhea, and constipation positive for abdominal pain, nausea, vomiting Back: Negative for injury and pain : Negative for injury, bleeding and discharge MS/Extremity: Negative for injury and deformity Skin: Negative for rash, and discoloration Neuro: Negative for headache, weakness, numbness, tingling, and seizure Psych: Negative for suicide ideation, homicidal ideation, and hallucinations Initial Vital Sign VS Vital Signs Date Time Temp Pulse Resp B/P (MAP) Pulse Ox O2 Delivery O2 Flow Rate FiO2 10/22/24 18:45 97.3 82 19 133/74 100 10/22/24 18:48 Room Air* 0 21 Physical Exam Dictation Vital Signs reviewed General Appearance: Alert, oriented x 3, no acute distress, well developed, nou rished. Head and Face: non-traumatic. Eyes: PERRL, pink conjunctivas, eyelid no trauma, anterior chamber with arcus senilis. Ears: Pinnas intact and no signs of trauma or erythema ear canals clear and no discharge TM no erythema Nose: No discharge, no bleeding. Oropharynx: Mouth normal, tongue pink. pharynx clear,no erythema, tonsils no exudates, no abscesses noted, mucous mem brane moist Neck: Supple, non-tender, no thyromegaly, no masses, no JVD, no bruits Breast:Deferred Chest:No tenderness, no crepitus, no paradoxical movement, no retractions Lungs:Clear, well-ventilated, symmetric, no rales, no wheezing, no rhonchi, no stridor, good breath sounds bilaterally Heart: Regular rate, regular rhythm, no murmur, no gallops Vascular: no peripheral edema, Abdomen: Soft, positive bowel sounds, nondistended, no guarding, U generalized tenderness, no rebound, no masses no hepatomegaly, no splenomegaly, no Borrero's sign, no hernias. Rectal: Deferred Genital: Deferred Neurological: Normal speech, motor function intact, sensory function intact Musculoskeletal: Neck nontender, full range of motion, back nontender, full range of motion, Extremities: nontender, full range of motion Skin: Color pink, dry, no turgor, no rash, no lacerations, no abrasions, no c ontusions. Lymphatic: Deferred Results (Laboratory/Radiology) Laboratory/Radiology Laboratory Tests Test 10/22/24 19:32 10/22/24 19:52 10/22/24 22:33 White Blood Count 4.6 K/uL (4.8-10.8) L Red Blood Count 4.32 MIL/uL (4.50-6.20) L Hemoglobin 12.2 g/dL (14.0-18.0) L Hematocrit 35.9 % (42-54) L Mean Corpuscular Volume 83.1 fL (79-99) Mean Corpuscular Hemoglobin 28.2 pg (27.0-33.0) Mean Corpuscular Hemoglobin Concent 34.0 g/dL (32.0-36.0) Red Cell Distribution Width 12.9 % (11.0-15.5) Platelet Count 123 K/uL (130-400) L Mean Platelet Volume 10.5 fL (7.5-10.5) Immature Granulocyte % (Auto) 0.2 % (0-1) Neutrophils (%) (Auto) 84.4 % (40.0-77.0) H Lymphocytes (%) (Auto) 9.6 % (21.0-51.0) L Monocytes (%) (Auto) 5.2 % (3.0-13.0) Eosinophils (%) (Auto) 0.2 % (0.0-8.0) Basophils (%) (Auto) 0.4 % (0.0-5.0) Neutrophils # (Auto) 3.9 K/uL (1.8-7.7) Lymphocytes # (Auto) 0.4 K/uL (1.0-4.8) L Monocytes # (Auto) 0.2 K/uL (0.1-1.0) Eosinophils # (Auto) 0.01 K/uL (0.00-0.70) Basophils # (Auto) 0.02 K/uL (0.00-0.20) Absolute Immature Granulocyte (auto 0.01 K/uL (0-1) Nucleated Red Blood Cells 0.0 % (0.0-0.19) White Cell Morphology Comment See comments Sodium Level 142 mmol/L (136-145) Potassium Level 4.0 mmol/L (3.5-5.1) Chloride Level 104 mmol/L (101-111) Carbon Dioxide Level 29 mmol/L (21-32) Blood Urea Nitrogen 10 mg/dL (7-18) Creatinine 0.9 mg/dL (0.5-1.3) Glomerular Filtration Rate Calc 107 mL/min (>90) Random Glucose 229 mg/dL (70-105) H Total Calcium 9.1 mg/dL (8.5-10.1) Total Bilirubin 1.0 mg/dL (0.2-1.0) Direct Bilirubin 0.3 mg/dL (0.0-0.3) Aspartate Amino Transf (AST/SGOT) 34 U/L (10-37) Alanine Aminotransferase (ALT/SGPT) 28 U/L (12-78) Alkaline Phosphatase 205 U/L (50-136) H Total Creatine Kinase 49 U/L (21-232) # Troponin I High Sensitivity < 4 ng/L (4-75) L Total Protein 7.2 g/dL (6.0-8.3) Albumin 2.7 g/dL (3.5-5.0) L Lipase 63 U/L (16-77) Prothrombin Time 12.0 SEC (9.6-11.6) H Prothromb Time International Ratio 1.08 (0.85-1.15) Activated Partial Thromboplast Time 28.3 SEC (26.3-35.5) Urine Color LIGHT-YELLOW (YELLOW) Urine Appearance CLEAR (CLEAR) Urine pH 6.0 (5.0-8.0) Urine Specific [place] 1.036 (1.001-1.031) Urine Protein NEGATIVE mg/dL (NEGATIVE) Urine Glucose (UA) TRACE mg/dL (NEGATIVE) H Urine Ketones NEGATIVE mg/dL (NEGATIVE) Urine Occult Blood NEGATIVE (NEGATIVE) Urine Nitrate NEGATIVE (NEGATIVE) Urine Bilirubin NEGATIVE mg/dL (NEGATIVE) Urine Urobilinogen 0.2 mg/dL (0.2-1.0) Urine Leukocyte Esterase NEGATIVE Samantha/uL Urine RBC 0-1 /HPF (0-1) Urine WBC 0-1 /HPF (0-1) Urine Bacteria None Seen /HPF (None Seen) REASON: sob ORDERING PHYSICIAN: SHAW WILKINS FRUIT DUMPER PROCEDURE: CXR1VW - CHEST 1VW Exam Type: CHEST 1VW Clinical Information: sob Comparison: None Findings: The lungs are clear of infiltrates. The heart is normal in size. The bony and soft tissue structures of the chest are unremarkable. Impression: Clear lungs. REASON: generalized Abdominal Pain, s/p colonoscopy ORDERING PHYSICIAN: SHAW WILKINS FRUIT DUMPER PROCEDURE: ABD PEL W - CT ABDOMEN/PELVIS W/CONTRAST Exam Type: CT ABDOMEN AND PELVIS WITH ORAL AND IV CONTRAST Clinical Information: generalized Abdominal Pain, s/p colonoscopy Contrast: 100 cc's Isovue 370 IV, no complications or adverse reactions Technique: Routine helical scanning at 5mm collimation through the abdomen and pelvis was performed after oral contrast administration. The examination was done before and after IV contrast administration as well. Intermediate and 7 minute delayed post IV contrast administration images were performed, for adequate contrast distention of the urinary collecting systems, ureters and the urinary bladder. CT Dose Index (CTDI): 4.38 mGy Dose Length Product (DLP): 197.9 total mGy-cm Findings: No evidence of nephro or ureterolithiasis is found. No hydronephrosis or ureteral dilatation is seen. Right renal lower interpolar complex mass with solid and cystic components 7.4 cm highly suspicious for neoplasm. The lung bases are clear. The stomach is unremarkable. It shows no wall thickening. No gross ulceration is seen. It is not overly distended. There are no surrounding inflammatory changes. No wall lesions are identified to suggest cancer. The spleen is enlarged. The liver is irregular in contour consistent with given history of cirrhosis. There are splenic hilar varices and varices of the gastroesophageal junction. There is trace ascites. These findings are consistent with portal venous hypertension. The pancreas shows normal anatomy. It is not fatty replaced. It shows no lesions. The pancreatic duct is not dilated. There is evidence of cholelithiasis. No evidence of acute or chronic inflammation is seen. The adrenal glands are unremarkable. There is no enlargement. No lesions are noted. The appendix is unremarkable. It shows no evidence of inflammation. No appendicolith is seen. The small bowel is unremarkable. There is no evidence of dilatation to suggest obstruction. No evidence of adynamic ileus is seen. There is no small bowel wall thickening to suggest enteritis. The colon is unremarkable. The urinary bladder is unremarkable. There is no wall thickening to suggest tumor or inflammation. There are no intraluminal calculi. There are no diverticula. There is no evidence of chronic bladder outlet obstruction. There is no evidence of urinary bladder distention to suggest urinary retention. The other pelvic structures are unremarkable. The bony and vascular structures are unremarkable for the patient's age. IMPRESSION: Findings consistent with cirrhosis and portal venous hypertension. Right renal mass suspicious for neoplasm. This study was performed using dose reduction techniques to include automated exposure control and/or adjustment of the mA and/or kV according to patient size to include automated exposure control and/or adjustment of the mA and/or kV according to patient size. Labs Reviewed?: Yes EKG: (+) rhythm (Sinus rhythm) EKG Comment: EKG 10/22/20242021 ventricular rate 65, regular rate and rhythm, normal sinus rhythm, no STEMI ED Course ED Course Orders Procedure Category Date Status Time Cbc With Differential LAB 10/22/24 Complete 19:04 Troponin I High LAB 10/22/24 Complete Sensitivity 19:04 Urinalysis Profile LAB 10/22/24 Complete 19:04 12 Lead Ekg Tracing- EKG 10/22/24 Logged Technical 19:04 0.9%Nacl 1000ml (Ns PHA 10/22/24 Complete 1000ml) 19:30 Morphine 4mg Syg PHA 10/22/24 Complete (Morphine 4mg Syg) 19:30 Ondansetron 4mg Inj PHA 10/22/24 Complete (Zofran 4mg Inj) 19:30 Pantoprazole 40mg Inj PHA 10/22/24 Complete (Protonix 40mg Inj 19:30 Creatine Kinase, Total LAB 10/22/24 Complete 19:04 Chest 1vw RAD 10/22/24 Resulted 19:04 Lipase LAB 10/22/24 Complete 19:04 Basic Metabolic Panel LAB 10/22/24 Complete 19:04 Hepatic Function Panel LAB 10/22/24 Complete 19:04 Ct Abdomen/Pelvis CT 10/22/24 Resulted W/Contrast 19:07 Pt And Ptt LAB 10/22/24 Complete 19:47 Iohexol (Omnipaque) PHA 10/22/24 Complete 20:47 Morphine 2mg Syg PHA 10/22/24 Complete (Morphine 2mg Syg) 22:00 *Nursing CPOE 10/22/24 Transmitted Communication: 21:59 Current Medications Medications (Trade) Dose Ordered Sig/Jb Route PRN Reason Start Time Stop Time Status Last Admin Dose Admin Iohexol (Omnipaque) 75 ml STK-MED ONCE IV 10/22/24 20:47 10/22/24 20:48 DC Morphine Sulfate (morPHINE 2MG SYG) 2 mg ONCE ONCE IVP 10/22/24 22:00 10/22/24 22:01 DC 10/22/24 22:48 Morphine Sulfate (morPHINE 4MG SYG) 4 mg ONCE ONCE IVP 10/22/24 19:30 10/22/24 19:31 DC 10/22/24 19:49 Ondansetron HCl (zoFRAN 4MG INJ) 4 mg ONCE ONCE IVP 10/22/24 19:30 10/22/24 19:31 DC 10/22/24 19:49 Pantoprazole Sodium (PROTonix 40MG INJ) 40 mg ONCE ONCE IVP 10/22/24 19:30 10/22/24 19:31 DC 10/22/24 19:49 Sodium Chloride 1,000 ml @ 0 mls/hr ONCE ONCE IV 10/22/24 19:30 10/22/24 19:31 DC 10/22/24 19:50 Vital Signs Date Time Temp Pulse Resp B/P (MAP) Pulse Ox O2 Delivery O2 Flow Rate FiO2 10/22/24 18:48 97.3 82 18 133/74 100 Room Air* 0 21 10/22/24 18:45 97.3 82 19 133/74 100 Medical Decision Making MDM The patient is a 44-year-old male with history of diabetes, hypertension, kidney cancer who presents to the emergency department with complaints of epigastric pain, nausea nonbloody vomiting onset this morning. Patient denies any diarrhe a, constipation, fevers. Reports he had a colonoscopy done at [facility] yesterday. CBC showed no leukocytosis, mild normocytic anemia, chemistry showed mild hyperglycemia, no normal renal function, negative lipase, negative troponin, no electrolyte imbalance. Chest x-ray unremarkable,CT abd showed findings consistent with cirrhosis, portal venous hypertension, renal mass. Which patient has a history of patient reports improvement in pain. Tolerated p.o. challenge. Patient stable vital signs. Agrees to be discharged and follow up with PCP. Differential diagnosis: Perforated bowel, gastritis, gastroenteritis, electrolyte imbalance, dehydration Need for hospitalization: Patient does not meet criteria for hospitalization. There are no social concerns with this patient. DX & DISP Disposition: Discharge Departure Impression: Primary Impression: Abdominal pain Additional Impressions: Nausea and vomiting, History of kidney cancer Condition: Stable Scripts Pantoprazole Sodium (Pantoprazole Sodium) 20 Mg Tablet. 1 TAB PO DAILY for 30 Days, #30 TAB 0 Refills Prov: SHAW WILKINS FRUIT DUMPER 10/23/24 Additional Instructions: Please follow up with the primary doctor in 1-2 days. Please return to ER if symptoms worsen. FOLLOW-UP WITH PRIMARY CARE PROVIDER IN 1 TO 2 DAYS. TAKE MEDICATIONS DIRECTED HERE IN THE EMERGENCY ROOM. OKAY TO CONTINUE HOME MEDICATIONS UNLESS OTHERWISE DISCUSSED DURING YOUR VISIT IN THE EMERGENCY ROOM TODAY. RETURN TO YOUR NEAREST EMERGENCY ROOM IF SYMPTOMS WORSEN OR IF THERE IS NO IMPROVEMENT. CALL 911 IF YOU NEED IMMEDIATE ASSISTANCE. TAKE TYLENOL OR MOTRIN [id number] NEEDED AND IF NO CONTRAINDICATIONS ARE PRESENT. INCREASE ORAL HYDRATION. A WOUND CULTURE OR URINE CULTURE WAS ORDERED HERE IN THE EMERGENCY ROOM DEPARTMENT PLEASE FOLLOW-UP WITH PRIMARY CARE PROVIDER AND ADVISE THEM TO GET REPEAT PORTS FROM OUR FACILITY. IF YOU HAD ANY BETTY WRAP/SPLINTS THAT WERE APPLIED HERE, PLEASE DO NOT REMOVE THEM UNTIL YOU SEE YOUR PRIMARY CARE OR SPECIALTY. Referrals: SHIV GARCIA PA-C (PCP) Time of Disposition: 23:59 I have reviewed the case, and I agree with, Diagnosis and Plan SHAW WILKINS [facility] Oct 22, 2024 23:44
--- NOTE | 2024-10-22 23:45 | NUR ---
PO CHALLENGE COMPLETE NO N/V
[2024-10-22 23:46] VITALS: BP 125/78; PULSE 90; RESP 16; TEMP 98.6; O2SAT 98
--- NOTE | 2024-10-22 23:56 | NUR ---
PATIENT PENDING DC BY CORRECTIONAL OFFICER LIEUTENANT ADVISED PO CHALLENGE COMPLETE AND PAIN LEVE AT 5
[2024-10-23] MEDS ORDERED: PANT20TA18 PO (00:01)
--- NOTE | 2024-10-23 08:37 | EKG ---
[facility] Test Date: 2024-10-22 Test Time: 20:22:36 Pat Name: DIGNA BURROUGHS Department: [facility] Room: Gender: M Forest Fire Prevention Specialist: [id number] : 1980 Requested By: SHAW WILKINS Order Number: [id number] Reading MD: Osorio Cross Measurements Intervals [place] Rate: 65 P: 31 HI: 178 QRS: 22 QRSD: 94 T: 2 QT: 450 QTc: 467 Interpretive Statements Sinus rhythm Compared to ECG 12/30/2023 03:43:17 Sinus tachycardia no longer present T-wave abnormality no longer present Prolonged QT interval no longer present Electronically Signed On 10-23-2024 21:17:40 FREIGHT ELEVATOR ERECTOR by Osorio Cross Please click the below link to view image of tracing.
== END 2024-10-23 00:12 | disposition home or self-care (01) ==
LOC: EDH 18:42
DX: R10.13 Epigastric pain (principal); R11.2 Nausea with vomiting, unspecified; E11.9 Type 2 diabetes mellitus without complications; Z79.899 Other long term (current) drug therapy; Z98.890 Other specified postprocedural states
CPT/HCPCS: 99285; 74177; 96374; 96375; 71045; 96361; 82550; 80076; 84484; 80048; 83690; 85025; 85610; 85730; 81001; 36415; 96376; 93005; J2270 ×2; J7030; J2405; J2470; Q9967

== ENCOUNTER 2025-09-30 19:52 | Emergency (ER) | payer BC ==
[~2025-09-30] VITALS: Ht 170.2 cm; Wt 76.2 kg
[2025-09-30 19:54] VITALS: BP 154/84; PULSE 100; RESP 18; TEMP 98.8
--- NOTE | 2025-09-30 20:08 | ERN ---
General Chief Complaint: Urinary Catheter Problems Stated Complaint: URINARY CATH PROBLEM Time Seen by MD: 19:54 History of Present Illness Initial Comments 45-year-old male history of bilateral renal cancer for which he has follow up by Urology and has a scheduled nephrectomy this upcoming week here for evaluation of Hsieh catheter malfunction. Patient states that he began leaking around the Hsieh catheter advised he decided to come to the emergency room for evaluation. No fever no cough no shortness a breath. No nausea vomiting diarrhea. Denies any hematuria dysuria or any other urinary symptoms. Allergies: Coded Allergies: No Known Drug Allergies (Unverified Allergy, Unknown, 07/01/23) Home Meds Reported Medications Pioglitazone HCl (Pioglitazone HCl) 30 Mg Tablet, 1 TAB PO DAILY for 30 Days, #30 TAB 0 Refills 09/20/25 Axitinib (Inlyta) 5 Mg Tablet, 5 MG PO DAILY, TAB 09/20/25 Axitinib (Inlyta) 5 Mg Tablet, 5 MG PO BID, TAB 09/20/25 Insulin Lispro (Humalog) 100 Unit/Ml Cartridge, 25 UNITS SQ TIDAC, CARTRIDGE 09/08/25 Insulin Glargine,Hum.rec.anlog (Lantus Solostar) 100 Unit/Ml (3 Ml) Insuln.pen, 50 UNIT SQ DAILY for 30 Days, #15 ML 0 Refills 09/08/25 Past Medical History Past Medical History: Diabetes-Type II, Other Medical History Other: BILATERAL KIDNEY CANCER Past Surgical History: None Surgical History Other: KIDNEY STENTS Family History Family History: Negative Social History Social History: Negative, Lives with family Review of Systems: was completed, & the rest were negative. Physical Exam Physical Exam Dictation GENERAL APPEARANCE NAD, activity normal for age, well developed/ well nourished, no cyanosis, pallor, or diaphoresis. EYES lids/conjunctiva normal. EARS/NOSE/THROAT Mucous membranes moist, nares normal, lips/teeth normal uvula midline without oral pharyngeal erythema, exudate or swelling TMs normal bilaterally. No lymphangitis/lymphedema. HEAD/NECK normocephalic atraumatic, no facial trauma, neck is supple. RESPIRATORY respiratory effort normal, speaks in full sentences, no tripod position, no accessory muscle use. Lungs clear to auscultation without rhonchi, wheezes, rales CARDIAC Regular rate and rhythm, no edema. ABDOMINAL Soft, ND/NT. No evidence of fluid wave. No pulsatile masses on exam, rebound tenderness, Borrero sign or pain over Mcburney's point. MUSCLES/EXTREMITIES No abnormal range of motion, no swelling. SKIN Warm, pink and dry. No rashes, dermatoses, petechiae or lesions. NEUROLOGICAL Speech is clear and appropriate. Normal level of consciousness. Gait and coordination are normal. 5/5 strength in all extremities. PSYCH Normal mood and affect. Judgement/competence is appropriate : Urinary catheter in place mild dribbling around catheter site at the tip of penis MDM 45-year-old male here for evaluation of Hsieh catheter malfunction. We will re place the Hsieh catheter, ensure a good seal and discharge home. He is to follow up with his urologist in the next week for his upcoming nephrectomy in [place]. (Dr May) ED Course Orders Procedure Category Date Status Time Nurse Driven Hsieh HARLEEN 09/30/25 In Process Removal Pro 20:05 Vital Signs Date Time Temp Pulse Resp B/P (MAP) Pulse Ox O2 Delivery O2 Flow Rate FiO2 09/30/25 19:54 98.8 100 18 154/84 100 Room Air 0 DX & DISP Disposition: Discharge Departure Impression: Primary Impression: Hsieh catheter problem Condition: Stable Referrals: PAGE GARZA MD (PCP) TACO DONG MD Sep 30, 2025 20:08
== END 2025-09-30 20:50 | disposition home or self-care (01) ==
LOC: EDH 19:52
DX: T83.038A Leakage of other urinary catheter, initial encounter (principal); E11.9 Type 2 diabetes mellitus without complications; Z79.84 Long term (current) use of oral hypoglycemic drugs; Z79.4 Long term (current) use of insulin; Z85.528 Personal history of other malignant neoplasm of kidney; Z90.5 Acquired absence of kidney; Y84.6 Urinary catheterization as the cause of abnormal reaction of the patient, or of later complication, without mention of misadventure at the time of the procedure; Y92.89 Other specified places as the place of occurrence of the external cause
CPT/HCPCS: 51702; 99283

== ENCOUNTER 2025-10-02 17:54 | Emergency (ER) | payer BC ==
[~2025-10-02] VITALS: Ht 170.2 cm; Wt 74.8 kg
[2025-10-02 17:55] VITALS: BP 157/85; PULSE 97; RESP 18; TEMP 98.8
--- NOTE | 2025-10-02 18:27 | ERN ---
General Chief Complaint: Urinary Catheter Problems Stated Complaint: GUTIERREZ CATH PROBLEM Time Seen by MD: 17:57 Time Seen by Midlevel: 17:57 Source: patient History of Present Illness Initial Comments The patient is a 45 y/o male with a past medical history of metastatic renal cancer presenting to the ER for a gutierrez evaluation. Patient states his gutierrez was leaking. Allergies: Coded Allergies: No Known Drug Allergies (Unverified Allergy, Unknown, 07/01/23) Home Meds Reported Medications Pioglitazone HCl (Pioglitazone HCl) 30 Mg Tablet, 1 TAB PO DAILY for 30 Days, #30 TAB 0 Refills 09/20/25 Axitinib (Inlyta) 5 Mg Tablet, 5 MG PO DAILY, TAB 09/20/25 Axitinib (Inlyta) 5 Mg Tablet, 5 MG PO BID, TAB 09/20/25 Insulin Lispro (Humalog) 100 Unit/Ml Cartridge, 25 UNITS SQ TIDAC, CARTRIDGE 09/08/25 Insulin Glargine,Hum.rec.anlog (Lantus Solostar) 100 Unit/Ml (3 Ml) Insuln.pen, 50 UNIT SQ DAILY for 30 Days, #15 ML 0 Refills 09/08/25 Past Medical History Past Medical History: Cancer, Diabetes-Type II, Renal Disese, Other Medical History Other: BILATERAL KIDNEY CANCER Past Surgical History: None Surgical History Other: KIDNEY STENTS Family History Family History: Negative Social History Social History: Negative, Lives with family ROS Dictation CONSTITUTIONAL: Negative except for HPI HEAD/FACE: Negative except for HPI EENT: Negative except for HPI RESPIRATORY: Negative except for HPI GASTROINTESTINAL/ABDOMINAL: Negative except for HPI GENITOURINARY: Negative except for HPI MUSCULOSKELETAL: Negative except for HPI INTEGUMENTARY: Negative except for HPI NEUROLOGICAL/PSYCH: Negative except for HPI HEMATOLOGIC/LYMPHATIC: Negative except for HPI All Systems Negative, Except as noted above. 13 point review of systems assessed and all negative except for above. Physical Exam Physical Exam Dictation Vital Signs reviewed General Appearance: Alert, oriented x 3, no acute distress, well developed, nou rished. Head and Face: non-traumatic. Eyes: PERRL, pink conjunctivas, eyelid no trauma, anterior chamber with arcus senilis. Ears: Pinnas intact and no signs of trauma or erythema ear canals clear and no discharge TM no erythema Nose: No discharge, no bleeding. Oropharynx: Mouth normal, tongue pink, pharynx clear,no erythema, tonsils no exudates, no abscesses noted, mucous me mbrane moist Neck: Supple, non-tender, no thyromegaly, no masses, no JVD, no bruits Breast:Deferred Chest:No tenderness, no crepitus, no paradoxical movement, no retractions Lungs:Clear, well-ventilated, symmetric, no rales, no wheezing, no rhonchi, no stridor, good breath sounds bilaterally Heart: Regular rate, regular rhythm, no murmur, no gallops Vascular: no peripheral edema, Abdomen: Soft, positive bowel sounds, nondistended, no guarding, nontender, no rebound, no masses no hepatomegaly, no splenomegaly, no Borrero's sign, no hernias. Rectal: Deferred Genital: Deferred Neurological: Normal speech, motor function intact, sensory function intact Musculoskeletal: Neck nontender, full range of motion, back nontender, full range of motion, Extremities: nontender, full range of motion Skin: Color pink, dry, no turgor, no rash, no lacerations, no abrasions, no contusions. Lymphatic: Deferred MDM MDM: Differential diagnosis: Gutierrez catheter evaluation, Gutierrez catheter malfunction There are no social concerns with this patient. Prescription drug management Prescriptions will include: None Medical management and examination interpretation discussions were had by me with other qualified healthcare professionals as indicated for the patient's care. ED Course Orders Procedure Category Date Status Time Nurse Driven Gutierrez HARLEEN 10/02/25 Complete Removal Pro 18:06 Vital Signs Date Time Temp Pulse Resp B/P (MAP) Pulse Ox O2 Delivery O2 Flow Rate FiO2 10/02/25 17:55 98.8 97 18 157/85 99 Gutierrez catheter replaced. Patient with no complaints. DX & DISP Disposition: Discharge Departure Impression: Primary Impression: Gutierrez catheter problem Condition: Stable Referrals: PAGE GARZA MD (PCP) I have reviewed the case, and I agree with, Diagnosis and Plan I performed the substantive portion of the visit. I have reviewed and personally made and approve the management plan that is documented in the note by myself or the ERIC. I acknowledge for responsibility for the patient's management plan. YANIRA LEMUS PAC Oct 02, 2025 18:27
== END 2025-10-02 18:37 | disposition home or self-care (01) ==
LOC: EDH 17:54
DX: T83.038A Leakage of other urinary catheter, initial encounter (principal); E11.9 Type 2 diabetes mellitus without complications; Z85.528 Personal history of other malignant neoplasm of kidney; Z79.4 Long term (current) use of insulin; Z79.84 Long term (current) use of oral hypoglycemic drugs; Y84.6 Urinary catheterization as the cause of abnormal reaction of the patient, or of later complication, without mention of misadventure at the time of the procedure
CPT/HCPCS: 51702; 99283

== ENCOUNTER 2025-10-14 07:59 | Emergency (ER) | payer BC ==
[~2025-10-14] VITALS: Ht 170.2 cm; Wt 70.8 kg
[~2025-10-14 07:59] MED LIST changes: +INSU100C14 SQ; +INSU3INS3 SQ; -LACT10SO9 PO; -LEVE750T4 PO; -LISI10TA24 PO; -METF-444 PO; +PIOG30TA70 PO; -RAMI5CAP72 PO
[2025-10-14 09:12] LABS: IMMATURE GRANULOCYTE ABSOLUTE 0.02 K/uL (0-1); NUCLEATED RED BLOOD CELLS 0.0 % (0.0-0.19); PLATELET COUNT (AUTO) 157 K/uL (130-400); RED BLOOD CELL COUNT(AUTO) 3.86 MIL/uL (4.50-6.20); RED CELL DISTRIBUTION WIDTH 14.9 % (11.0-15.5); WHITE BLOOD COUNT (AUTO) 5.4 K/uL (4.8-10.8)
[2025-10-14 09:21] LABS: CREATININE 0.8 mg/dL (0.5-1.3); GLOMERULAR FILTR. RATE CALC 110.0 mL/min (>90); GLUCOSE,RANDOM 199.0 mg/dL (70-105); SODIUM SERUM 134.0 mmol/L (136-145); UREA NITROGEN, BLOOD 14.0 mg/dL (7-18)
[2025-10-14] MEDS: LIDOCAINE HCL 2% JELLY 5 ML TP SCH (09:55)
[2025-10-14 10:23] LABS: GLUCOSE, URINE (UA) NEGATIVE (NEGATIVE); LEUKOCYTE ESTERASE ,URINE 500 Leu/uL (NEGATIVE); NITRATE,URINE 1+ (NEGATIVE); OCCULT BLOOD,URINE MODERATE (NEGATIVE)
[2025-10-14 10:24] LABS: ADD UA MICROSCOPIC YES; APPEARANCE,URINE CLOUDY (CLEAR)
[2025-10-14 10:28] LABS: SQUAMOUS EPITHELIAL CELL,UR FEW /HPF (0-2); WBC CLUMP FEW /HPF (0-1)
[2025-10-14] MEDS ORDERED: CIPR-278 PO (11:00)
--- NOTE | 2025-10-14 11:00 | ERN ---
ED Note History of Present Illness Stated Complaint: URINARY RETENTION Chief Complaint: Urinary Retention Time Seen by MD: 08:08 Dictation: 45-year-old male presenting to the emergency department with urinary retention over the past day, patient had Hsieh catheter which was recently removed by urologist patient has solitary renal mass to the right kidney which is scheduled for nephrectomy in the next few weeks. Patient denies any fever chest pain or any bleeding in the urine Allergies: Coded Allergies: No Known Drug Allergies (Unverified Allergy, Unknown, 07/01/23) Home Meds Reported Medications Pioglitazone HCl (Pioglitazone HCl) 30 Mg Tablet, 1 TAB PO DAILY for 30 Days, #30 TAB 0 Refills 09/20/25 Axitinib (Inlyta) 5 Mg Tablet, 5 MG PO DAILY, TAB 09/20/25 Axitinib (Inlyta) 5 Mg Tablet, 5 MG PO BID, TAB 09/20/25 Insulin Lispro (Humalog) 100 Unit/Ml Cartridge, 25 UNITS SQ TIDAC, CARTRIDGE 09/08/25 Insulin Glargine,Hum.rec.anlog (Lantus Solostar) 100 Unit/Ml (3 Ml) Insuln.pen, 50 UNIT SQ DAILY for 30 Days, #15 ML 0 Refills 09/08/25 Past Medical History Past Medical History: Cancer, Diabetes-Type II Additional Past Medical Hx: BILATERAL KIDNEY CANCER Surgical History: None Surgical History Other: KIDNEY STENTS Family History: Negative Social History: Negative, Lives with family Review of System Dictation Constitutional: Negative for fever,chills, and weight loss Eyes: Negative for injury, pain,redness, and discharge ENT: Negative for injury,pain or swelling Cardiovascular: Negative for chest pain, palpitations, and edema Respiratory: Negative for shortness of breath, cough, and wheezing, Abdomen/GI: Negative for abdominal pain, nausea, vomiting, diarrhea, and constipation Back: Negative for injury and pain : Per HPI MS/Extremity: Negative for injury and deformity Skin: Negative for rash, and discoloration Neuro: Negative for headache, weakness, numbness, tingling, and seizure Psych: Negative for suicide ideation, homicidal ideation, and hallucinations Initial Vital Sign VS Vital Signs Date Time Temp Pulse Resp B/P (MAP) Pulse Ox O2 Delivery O2 Flow Rate FiO2 10/14/25 08:01 97.5 84 16 135/80 98 Room Air 0 Physical Exam Dictation General: awake, alert, NAD Head/Face: Normocephalic, atraumatic Eyes: PERRL, EOMI, vision at baseline ENT: oral cavity clear, TMs clear, no signs of infection Neck: Trachea midline, supple, no nuchal rigidity Cardiovascular: RRR, normal S1/S2, No MRGs, no JVD Respiratory: CTAB, no respiratory distress, No rales or wheezes Abdomen: Soft, non-tender, non-distended, normal bowel sounds, no guarding or rebound. Skin: Warm, dry, normal turgor, no rash MS/Extremity: Pulses equal, no cyanosis, neurovascular intact, FROM Neuro: COAx4, GCS 15, strength 5/5, CN 2-12 intact, normal cerebellar exam, normal gait, Psych: Normal behavior, mood, and affect normal Results (Laboratory/Radiology) Laboratory/Radiology Laboratory Tests Test 10/14/25 08:54 10/14/25 09:43 White Blood Count 5.4 K/uL (4.8-10.8) Red Blood Count 3.86 MIL/uL (4.50-6.20) L Hemoglobin 10.4 g/dL (14.0-18.0) L Hematocrit 32.3 % (42-54) L Mean Corpuscular Volume 83.7 fL (79-99) Mean Corpuscular Hemoglobin 26.9 pg (27.0-33.0) L Mean Corpuscular Hemoglobin Concent 32.2 g/dL (32.0-36.0) Red Cell Distribution Width 14.9 % (11.0-15.5) Platelet Count 157 K/uL (130-400) Mean Platelet Volume 11.1 fL (7.5-10.5) H Immature Granulocyte % (Auto) 0.4 % (0-1) Neutrophils (%) (Auto) 81.5 % (40.0-77.0) H Lymphocytes (%) (Auto) 9.1 % (21.0-51.0) L Monocytes (%) (Auto) 6.7 % (3.0-13.0) Eosinophils (%) (Auto) 1.7 % (0.0-8.0) Basophils (%) (Auto) 0.6 % (0.0-5.0) Neutrophils # (Auto) 4.4 K/uL (1.8-7.7) Lymphocytes # (Auto) 0.5 K/uL (1.0-4.8) L Monocytes # (Auto) 0.4 K/uL (0.1-1.0) Eosinophils # (Auto) 0.09 K/uL (0.00-0.70) Basophils # (Auto) 0.03 K/uL (0.00-0.20) Absolute Immature Granulocyte (auto 0.02 K/uL (0-1) Nucleated Red Blood Cells 0.0 % (0.0-0.19) White Cell Morphology Comment See comments Sodium Level 134 mmol/L (136-145) L Potassium Level 3.9 mmol/L (3.5-5.1) Chloride Level 103 mmol/L (101-111) Carbon Dioxide Level 23 mmol/L (21-32) Blood Urea Nitrogen 14 mg/dL (7-18) Creatinine 0.8 mg/dL (0.5-1.3) Glomerular Filtration Rate Calc 110 mL/min (>90) Random Glucose 199 mg/dL (70-105) H Total Calcium 8.2 mg/dL (8.5-10.1) L Urine Color YELLOW (YELLOW) Urine Appearance CLOUDY (CLEAR) H Urine pH 6.0 (5.0-8.0) Urine Specific [place] 1.021 (1.001-1.031) Urine Protein 70 mg/dL (NEGATIVE) H Urine Glucose (UA) NEGATIVE mg/dL (NEGATIVE) Urine Ketones NEGATIVE mg/dL (NEGATIVE) Urine Occult Blood MODERATE (NEGATIVE) H Urine Nitrate 1+ (NEGATIVE) H Urine Bilirubin NEGATIVE mg/dL (NEGATIVE) Urine Urobilinogen 2.0 mg/dL (0.2-1.0) H Urine Leukocyte Esterase 500 Samantha/uL (NEGATIVE) H Urine RBC 11-25 /HPF (0-1) H Urine WBC TNTC /HPF (0-1) H Urine WBC Clumps (Auto) FEW /HPF (0-1) Urine Squamous Epithelial Cells FEW /HPF (0-2) Urine Bacteria MOD /HPF (None Seen) Labs Reviewed?: Yes ED Course ED Course Orders Procedure Category Date Status Time Nurse Driven Jori CANSECO 10/14/25 In Process Removal Pro 08:09 Basic Metabolic Panel LAB 10/14/25 Complete 08:09 Cbc With Differential LAB 10/14/25 Complete 08:09 Urinalysis Profile LAB 10/14/25 Complete 08:09 Lidocaine Hcl 2% PHA 10/14/25 In Process Jelly (Lidocaine Hcl 09:00 Culture Urine CIARA 10/14/25 In Process 10:24 Ceftriaxone 2gm Vial PHA 10/14/25 Complete (Rocephin 2gm Inj) 10:40 Current Medications Medications (Trade) Dose Ordered Sig/Jb Route PRN Reason Start Time Stop Time Status Last Admin Dose Admin Ceftriaxone Sodium (Rocephin 2gm Inj) 2 gm ONCE STAT IVPB 10/14/25 10:40 10/14/25 10:43 DC Lidocaine HCl (Lidocaine HCl 2% Jelly) 1 appl ONCE TP 10/14/25 09:00 10/14/25 11:00 10/14/25 09:55 Vital Signs Date Time Temp Pulse Resp B/P (MAP) Pulse Ox O2 Delivery O2 Flow Rate FiO2 10/14/25 08:01 97.5 84 16 135/80 98 Room Air 0 Medical Decision Making MDM MDM: Differential diagnosis: Rationale: Tests considered and ordered secondary to shared decision making include: Previous outside records reviewed: Old ER visits. Risk of complication and/or morbidity or mortality of patient management: None Medications-Per medication reconciliation Need for hospitalization: Patient does not meet criteria for hospitalization. Need for emergency major/minor surgery: No There are no social concerns with this patient. Prescription drug management Prescriptions will include symptomatic care Patient's prior external medical records from other ER visits were reviewed by me as indicated. Prior testing and results from previous visits were reviewed. Prior tests were taken into account with medical decision making and resource utilization, independent historian/historians were used to obtain complete medical history. I independently interpreted the test that were performed, results were reviewed by me and considered findings on radiology if ordered. Medical management and examination interpretation discussions were had by me with other qualified healthcare professionals as indicated for the patient's care. 45-year-old male with UTI and acute urinary retention, Hsieh was placed and IV antibiotics given patient is afebrile nontoxic no white count, stable for outpatient treatment and has urology follow up for pending nephrectomy in the next few weeks advised to return if worse in any way. DX & DISP Disposition: Discharge Departure Impression: Primary Impression: Right renal mass Additional Impressions: Acute UTI, Acute urinary retention Condition: Stable Scripts Ciprofloxacin HCl (Cipro) 500 Mg Tablet 1 TAB PO BID for 7 Days, #14 TAB 0 Refills Prov: DONI SOSA MD 10/14/25 Referrals: PAGE GARZA MD (PCP) DONI SOSA MD Oct 14, 2025 11:00
[2025-10-14 11:23] VITALS: BP 129/79; PULSE 70; RESP 20; TEMP 97.7; O2SAT 99
== END 2025-10-14 11:24 | disposition home or self-care (01) ==
LOC: EDH 07:59
DX: N28.89 Other specified disorders of kidney and ureter (principal); N39.0 Urinary tract infection, site not specified; R33.9 Retention of urine, unspecified; E11.9 Type 2 diabetes mellitus without complications; Z79.84 Long term (current) use of oral hypoglycemic drugs; Z85.528 Personal history of other malignant neoplasm of kidney; Z79.899 Other long term (current) drug therapy; Z79.4 Long term (current) use of insulin
CPT/HCPCS: 99284; 96374; 80048; 85025; 87086 ×2; 87186; 81001; 36415; 51702; J0696

== ENCOUNTER 2025-10-23 23:49 | Emergency (ER) | payer BC ==
[~2025-10-23] VITALS: Ht 170.2 cm; Wt 70.8 kg
[~2025-10-23 23:49] MED LIST changes: +CIPR-278 PO
[2025-10-23 23:51] VITALS: BP 135/83; PULSE 96; RESP 20; TEMP 98.6
[2025-10-24 00:30] LABS: CREATININE 0.8 mg/dL (0.5-1.3); GLOMERULAR FILTR. RATE CALC 110.0 mL/min (>90); GLUCOSE,RANDOM 153.0 mg/dL (70-105); SODIUM SERUM 136.0 mmol/L (136-145); UREA NITROGEN, BLOOD 14.0 mg/dL (7-18)
[2025-10-24 00:40] LABS: IMMATURE GRANULOCYTE ABSOLUTE 0.01 K/uL (0-1); NUCLEATED RED BLOOD CELLS 0.0 % (0.0-0.19); PLATELET COUNT (AUTO) 93 K/uL (130-400); RED BLOOD CELL COUNT(AUTO) 4.17 MIL/uL (4.50-6.20); RED CELL DISTRIBUTION WIDTH 14.9 % (11.0-15.5); WHITE BLOOD COUNT (AUTO) 4.7 K/uL (4.8-10.8)
[2025-10-24 01:36] LABS: APPEARANCE,URINE CLEAR (CLEAR); GLUCOSE, URINE (UA) NEGATIVE (NEGATIVE); LEUKOCYTE ESTERASE ,URINE 250 Leu/uL (NEGATIVE); NITRATE,URINE NEGATIVE (NEGATIVE); OCCULT BLOOD,URINE SMALL (NEGATIVE)
[2025-10-24 01:43] LABS: ADD UA MICROSCOPIC YES
[2025-10-24 01:44] LABS: SQUAMOUS EPITHELIAL CELL,UR RARE /HPF (0-2)
[2025-10-24] MEDS ORDERED: CEFP100T9 PO (01:45)
--- NOTE | 2025-10-24 01:46 | ERN ---
ED Note History of Present Illness Stated Complaint: C/O URINARY RETENTION Chief Complaint: Urinary Retention Time Seen by MD: 23:52 Time Seen by Midlevel: 23:52 Dictation: The patient is a 45-year-old male who presents to the emergency department with complains of urinary retention onset today. Patient reports he had his Lorenzo removed 9 days ago. Patient denies any nausea or vomiting, denies any fevers or abdominal pain. Denies any hematuria Allergies: Coded Allergies: No Known Drug Allergies (Unverified Allergy, Unknown, 07/01/23) Home Meds Active Scripts Cefpodoxime Proxetil (Cefpodoxime Proxetil) 100 Mg Tablet, 1 TAB PO BID for 7 Days, #14 TAB 0 Refills Prov:SHAW WILKINS 10/24/25 Ciprofloxacin HCl (Cipro) 500 Mg Tablet, 1 TAB PO BID for 7 Days, #14 TAB 0 Refills Prov:DONI SOSA MD 10/14/25 Reported Medications Pioglitazone HCl (Pioglitazone HCl) 30 Mg Tablet, 1 TAB PO DAILY for 30 Days, #3 0 TAB 0 Refills 09/20/25 Axitinib (Inlyta) 5 Mg Tablet, 5 MG PO DAILY, TAB 09/20/25 Axitinib (Inlyta) 5 Mg Tablet, 5 MG PO BID, TAB 09/20/25 Insulin Lispro (Humalog) 100 Unit/Ml Cartridge, 25 UNITS SQ TIDAC, CARTRIDGE 09/08/25 Insulin Glargine,Hum.rec.anlog (Lantus Solostar) 100 Unit/Ml (3 Ml) Insuln.pen, 50 UNIT SQ DAILY for 30 Days, #15 ML 0 Refills 09/08/25 Past Medical History Past Medical History: Diabetes-Type II Additional Past Medical Hx: BILATERAL KIDNEY CANCER Surgical History: Other Surgical History Other: KIDNEY STENTS Family History: Negative Social History: Negative, Lives with family RN Note Reviewed/Agreed w/PFSH: Yes Review of System Dictation Constitutional: Negative for fever,chills, and weight loss Eyes: Negative for injury, pain,redness, and discharge ENT: Negative for injury,pain or swelling Cardiovascular: Negative for chest pain, palpitations, and edema Respiratory: Negative for shortness of breath, cough, and wheezing, Abdomen/GI: Negative for abdominal pain, nausea, vomiting, diarrhea, and constipation Back: Negative for injury and pain : Negative for injury, bleeding and discharge positive for urinary retention MS/Extremity: Negative for injury and deformity Skin: Negative for rash, and discoloration Neuro: Negative for headache, weakness, numbness, tingling, and seizure Psych: Negative for suicide ideation, homicidal ideation, and hallucinations Initial Vital Sign VS Vital Signs Date Time Temp Pulse Resp B/P (MAP) Pulse Ox O2 Delivery O2 Flow Rate FiO2 10/23/25 23:51 98.6 96 20 135/83 99 Room Air Physical Exam Dictation Vital Signs reviewed General Appearance: Alert, oriented x 3, no acute distress, well developed, nourished. Head and Face: non-traumatic. Eyes: PERRL, pink conjunctivas, eyelid no trauma, anterior chamber with arcus senilis. Ears: Pinnas intact and no signs of trauma or erythema ear canals clear and no discharge TM no erythema Nose: No discharge, no bleeding. Oropharynx: Mouth normal, tongue pink. pharynx clear,no erythema, tonsils no exudates, no abscesses noted, mucous membrane moist Neck: Supple, non-tender, no thyromegaly, no masses, no JVD, no bruits Breast:Deferred Chest:No tenderness, no crepitus, no paradoxical movement, no retractions Lungs:Clear, well-ventilated, symmetric, no rales, no wheezing, no rhonchi, no stridor, good breath sounds bilaterally Heart: Regular rate, regular rhythm, no murmur, no gallops Vascular: no peripheral edema, Abdomen: Soft, positive bowel sounds, nondistended, no guarding, nontender, no rebound, no masses no hepatomegaly, no splenomegaly, no Borrero's sign, no hernias. Rectal: Deferred Genital: Deferred Neurological: Normal speech, motor function intact, sensory function intact Musculoskeletal: Neck nontender, full range of motion, back nontender, full range of motion, Extremities: nontender, full range of motion Skin: Color pink, dry, no turgor, no rash, no lacerations, no abrasions, no contusions. Lymphatic: Deferred Results (Laboratory/Radiology) Laboratory/Radiology Laboratory Tests Test 10/23/25 00:05 10/23/25 00:30 White Blood Count 4.7 K/uL (4.8-10.8) L Red Blood Count 4.17 MIL/uL (4.50-6.20) L Hemoglobin 11.3 g/dL (14.0-18.0) L Hematocrit 34.4 % (42-54) L Mean Corpuscular Volume 82.5 fL (79-99) Mean Corpuscular Hemoglobin 27.1 pg (27.0-33.0) Mean Corpuscular Hemoglobin Concent 32.8 g/dL (32.0-36.0) Red Cell Distribution Width 14.9 % (11.0-15.5) Platelet Count 93 K/uL (130-400) L Mean Platelet Volume 10.7 fL (7.5-10.5) H Immature Granulocyte % (Auto) 0.2 % (0-1) Neutrophils (%) (Auto) 79.8 % (40.0-77.0) H Lymphocytes (%) (Auto) 11.4 % (21.0-51.0) L Monocytes (%) (Auto) 5.9 % (3.0-13.0) Eosinophils (%) (Auto) 1.9 % (0.0-8.0) Basophils (%) (Auto) 0.8 % (0.0-5.0) Neutrophils # (Auto) 3.8 K/uL (1.8-7.7) Lymphocytes # (Auto) 0.5 K/uL (1.0-4.8) L Monocytes # (Auto) 0.3 K/uL (0.1-1.0) Eosinophils # (Auto) 0.09 K/uL (0.00-0.70) Basophils # (Auto) 0.04 K/uL (0.00-0.20) Absolute Immature Granulocyte (auto 0.01 K/uL (0-1) Nucleated Red Blood Cells 0.0 % (0.0-0.19) Sodium Level 136 mmol/L (136-145) Potassium Level 3.9 mmol/L (3.5-5.1) Chloride Level 104 mmol/L (101-111) Carbon Dioxide Level 27 mmol/L (21-32) Blood Urea Nitrogen 14 mg/dL (7-18) Creatinine 0.8 mg/dL (0.5-1.3) Glomerular Filtration Rate Calc 110 mL/min (>90) Random Glucose 153 mg/dL (70-105) H Total Calcium 8.6 mg/dL (8.5-10.1) Urine Color LIGHT-YELLOW (YELLOW) Urine Appearance CLEAR (CLEAR) Urine pH 6.5 (5.0-8.0) Urine Specific [place] 1.008 (1.001-1.031) Urine Protein NEGATIVE mg/dL (NEGATIVE) Urine Glucose (UA) NEGATIVE mg/dL (NEGATIVE) Urine Ketones NEGATIVE mg/dL (NEGATIVE) Urine Occult Blood SMALL (NEGATIVE) H Urine Nitrate NEGATIVE (NEGATIVE) Urine Bilirubin NEGATIVE mg/dL (NEGATIVE) Urine Urobilinogen 0.2 mg/dL (0.2-1.0) Urine Leukocyte Esterase 250 Samantha/uL (NEGATIVE) H Urine RBC 2-5 /HPF (0-1) H Urine WBC 51-100 /HPF (0-1) H Urine Squamous Epithelial Cells RARE /HPF (0-2) Urine Bacteria FEW /HPF (None Seen) Labs Reviewed?: Yes ED Course ED Course Orders Procedure Category Date Status Time Cbc With Differential LAB 10/23/25 Complete 23:54 Basic Metabolic Panel LAB 10/23/25 Complete 23:54 Urinalysis Profile LAB 10/23/25 Complete 23:54 Nurse Driven Lorenzo HARLEEN 10/24/25 Complete Removal Pro 00:02 Culture Urine CIARA 10/24/25 In Process 01:43 Ceftriaxone 1g Vial PHA 10/24/25 Complete (Rocephine 1g Inj) 02:00 Current Medications Medications (Trade) Dose Ordered Sig/Jb Route PRN Reason Start Time Stop Time Status Last Admin Dose Admin Ceftriaxone Sodium (ROCEphine 1G INJ) 1 gm ONCE ONCE IM 10/24/25 02:00 10/24/25 02:01 DC 10/24/25 02:07 Vital Signs Date Time Temp Pulse Resp B/P (MAP) Pulse Ox O2 Delivery O2 Flow Rate FiO2 10/23/25 23:51 98.6 96 20 135/83 99 Room Air Medical Decision Making MDM The patient is a 45-year-old male who presents to the emergency department with complains of urinary retention onset today. Patient reports he had his Lorenzo removed 9 days ago. Patient denies any nausea or vomiting, denies any fevers or abdominal pain. Denies any hematuria CBC showed no leukocytosis, mild normocytic anemia, thrombocytopenia, chemistry showed no electrolyte imbalance, creatinine of 0.8. Patient had lorenzo placed with about 400 cc of clear yellow urine. Patient reports feeling better and reports he wants to leave already. Patient in no acute distress ,non toxic appearance. Differential diagnosis: UTI, urinary retention, acute kidney injury Need for hospitalization: Patient does not meet criteria for hospitalization. There are no social concerns with this patient. DX & DISP Disposition: Discharge Departure Impression: Primary Impression: Acute urinary retention Additional Impression: Acute UTI Condition: Stable Scripts Cefpodoxime Proxetil (Cefpodoxime Proxetil) 100 Mg Tablet 1 TAB PO BID for 7 Days, #14 TAB 0 Refills Prov: WILKINS,SHAW DOSS 10/24/25 Additional Instructions: The urinalysis showed any urinary tract infection. Please take your medications as prescribed. Follow up with your urologist. If anything worsens please return to ER. FOLLOW-UP WITH PRIMARY CARE PROVIDER IN 1 TO 2 DAYS. TAKE MEDICATIONS DIRECTED HERE IN THE EMERGENCY ROOM. OKAY TO CONTINUE HOME MEDICATIONS UNLESS OTHERWISE DISCUSSED DURING YOUR VISIT IN THE EMERGENCY ROOM TODAY. RETURN TO YOUR NEAREST EMERGENCY ROOM IF SYMPTOMS WORSEN OR IF THERE IS NO IMPROVEMENT. CALL 911 IF YOU NEED IMMEDIATE ASSISTANCE. TAKE TYLENOL [id number] NEEDED AND IF NO CONTRAINDICATIONS ARE PRESENT. INCREASE ORAL HYDRATION. A WOUND CULTURE OR URINE CULTURE WAS ORDERED HERE IN THE EMERGENCY ROOM DEPARTMENT PLEASE FOLLOW-UP WITH PRIMARY CARE PROVIDER AND ADVISE THEM TO GET REPEAT PORTS FROM OUR FACILITY. IF YOU HAD ANY BETTY WRAP/SPLINTS THAT WERE APPLIED HERE, PLEASE DO NOT REMOVE THEM UNTIL YOU SEE YOUR PRIMARY CARE OR SPECIALTY. Referrals: PAGE GARZA MD (PCP) Time of Disposition: 01:45 I have examined patient, & reviewed all documents, & agreed W/ the Diagnosis, and Plan I performed a substantive portion of the visit. I have reviewed and personally made and approve the management plan that is documented in the notes by myself with ERIC/resident. I acknowledged full responsibility for the patient's management plan. SHAW WILKINS Oct 24, 2025 01:46 TERESA HUMPHREY DO Oct 24, 2025 03:19
== END 2025-10-24 02:15 | disposition home or self-care (01) ==
LOC: EDH 23:49
DX: R33.9 Retention of urine, unspecified (principal); N39.0 Urinary tract infection, site not specified; E11.9 Type 2 diabetes mellitus without complications; Z79.4 Long term (current) use of insulin; Z79.84 Long term (current) use of oral hypoglycemic drugs; Z85.528 Personal history of other malignant neoplasm of kidney
CPT/HCPCS: 99284; 80048; 85025; 87086; 81001; 36415; 51702; 96372; J0696